=== PATIENT | male | born 1960 | race Caucasian/White ===

== ENCOUNTER 2020-12-05 17:33 | Emergency (ER) | payer OTHER ==
[~2020-12-05] VITALS: Ht 167.6 cm; Wt 85.5 kg
[2020-12-05 17:50] VITALS: BP 138/95
[2020-12-05] MEDS ORDERED: LIDOCAINE 2% 20 ML VIAL. IJ ONE (18:00)
[2020-12-05] MEDS ORDERED: BACITRACIN ZINC TOPICAL OINT PACKET. TP ONE (18:00)
[2020-12-05] MEDS ORDERED: levoFLOXacin 500 MG TABLET PO ONE (18:00)
[2020-12-05] MEDS ORDERED: TETANUS AND DIPHTHERIA TOX/PF 0.5 ML VIAL. VAX IM ONE (18:30)
--- NOTE | 2020-12-05 18:30 | RAD ---
Exam: Right foot 3 views INDICATION: Stepped on nail TECHNIQUE: Frontal, lateral oblique views of the right foot Comparisons: None FINDINGS: Bone mineralization is normal. No acute or healed fractures. Soft tissues are unremarkable. Joint spa yanci are well-maintained. IMPRESSION: No acute osseous abnormality. Electronically signed by: Dea Houser MD (12/05/2020 6:28 PM) [facility]
--- NOTE | 2020-12-06 06:51 | PHYS DOC ---
Past History Past Medical History: Other Additional Past Medical Histor: BPH Alcohol Use: Occasionally General Adult EDM: Chief Complaint: FOOT INJURY PAIN HPI: HPI: ".. I was out raking leaves..and I stepped on the that rotten two by four with those robert nails.. it went through my shoe...".." I got a hole on the bottom of my foot.." Patient is a 60 year old male who presents with hx above and complaints of puncture wound to foot. Patient was wearing tennis shoes with foam inserts. Patient does not remember his last tetanus. Patient denies any history of depression. Patient denies any travel. Patient denies any specific ill contacts. Patient normally follows with a primary care. Patient's punctuated does appear to have retained rust particles. Distal neurovascular intact. No other injury reported. No history immunosuppression. Review of Systems: Review of Systems: Constitutional: Denies fever or chills Eyes: Denies change in visual acuity HENT: Denies nasal congestion or sore throat Respiratory: Denies cough or shortness of breath Cardiovascular: Denies chest pain or edema GI: Denies abdominal pain, nausea, vomiting, bloody stools or diarrhea : Denies dysuria Musculoskeletal: Denies back pain or joint pain Integument: Complains of puncture wound on right foot Neurologic: Denies headache, focal weakness or sensory changes Endocrine: Denies polyuria or polydipsia Lymphatic: Denies swollen glands Psychiatric: Denies depression or anxiety Family History: Family History: Noncontributory to presentation Current Medications: Current Meds: Current Medications Medications (Trade) Dose Ordered Sig/[facility] Start Time Stop Time Status Last Admin Dose Admin Bacitracin (Bacitracin Topical Pkt) 1 pkt 1X ONCE 12/05/20 18:00 12/05/20 18:20 DC 12/05/20 18:38 1 PKT Levofloxacin (Levaquin) 500 mg 1X ONCE 12/05/20 18:00 12/05/20 18:20 DC 12/05/20 18:35 500 MG Lidocaine HCl 20 ml 1X ONCE 12/05/20 18:00 12/05/20 18:20 DC 12/05/20 18:10 20 ML Tetanus/ Diphtheria Toxoids Adsorbed (Tenivac Vial) 0.5 ml ONCE ONCE 12/05/20 18:30 12/05/20 18:31 DC 12/05/20 18:38 0.5 ML Allergies: Allergies: Allergies Coded Allergies Type Severity Reaction Last Updated Verified poison jemal extract Allergy Intermediate 12/05/20 Yes Physical Exam: PE: Constitutional: Moderate acute distress, non-toxic appearance. [] HENT: Normocephalic, atraumatic, bilateral external ears normal, oropharynx moist, no oral exudates, nose normal. [] Eyes: PERRLA, EOMI, conjunctiva normal, no discharge. [] Neck: Normal range of motion, no tenderness, supple, no stridor. [] Cardiovascular:Heart rate regular rhythm, no murmur [] Lungs & Thorax: Bilateral breath sounds equal at apex auscultation [] Abdomen: Bowel sounds normal, soft, no tenderness, no masses, no pulsatile masses. [] Skin: Warm, dry, no erythema, no rash. Puncture wound right foot Back: No tenderness, no CVA tenderness. [] Extremities: No tenderness, no cyanosis, no clubbing, ROM intact, no edema. [] Neurologic: Alert and oriented X 3, normal motor function, normal sensory function, no focal deficits noted. [] Psychologic: Affect normal, judgement normal, mood normal. [] Current Patient Data: Vital Signs: Vital Signs Date Time Temp Pulse Resp B/P (MAP) Pulse Ox O2 Delivery O2 Flow Rate FiO2 12/05/20 17:50 98.3 78 138/95 (109) 96 Room Air EKG: EKG: [] Radiology/Procedures: Radiology/Procedures: [][place] [address] IMAGING REPORT Signed PATIENT: ANDRES QUIGLEY OACCOUNT: [id number] : 1960 LOCATION: ER AGE: 60 SEX: M EXAM STATUS: REG ER ORD. PHYSICIAN: CLOVIS CUEVAS MD REASON: fob?, stepped on a nail PROCEDURE: FOOT RIGHT 3V Exam: Right foot 3 views INDICATION: Stepped on nail TECHNIQUE: Frontal, lateral oblique views of the right foot Comparisons: None FINDINGS: Bone mineralization is normal. No acute or healed fractures. Soft tissues are unremarkable. Joint spaces are well-maintained. IMPRESSION: No acute osseous abnormality. Electronically signed by: Dea Lopez MD (12/05/2020 6:28 PM) [facility] DICTATED AND SIGNED BY: DEA LOPEZ MD DATE: 12/05/201826 CC: CLOVIS CUEVAS MD; PCP,UNKNOWN ~MTH0 0 Heart Score: Risk Factors: Risk Factors: DM, Current or recent (<one month) smoker, HTN, HLP, family history of CAD, obesity. Risk Scores: Score 0 - 3: 2.5% MACE over next 6 weeks - Discharge Home Score 4 - 6: 20.3% MACE over next 6 weeks - Admit for Clinical Observation Score 7 - 10: 72.7% MACE over next 6 weeks - Early Invasive Strategies Course & Med Decision Making: Course & Med Decision Making Pertinent Labs and Imaging studies reviewed. (See chart for details) Procedure note; Wound Care-,,-foot cleaned with Betadine. Injected area of puncture wound with 2% lidocaine. Used a tissue biopsy punch and removed the deposits of rust that were trapped under the skin. Patient to keep area clean and dry. Antibiotic ointment 4 times a day. Take Levaquin 500 mg daily. Wear only white socks. Patient follow-up primary care. Patient return if any concerns. Patient's tetanus was updated. X-ray post procedure showed no foreign body. Recommend patient soak foot in warm Epson salt water or warm salt water 4 times a day and then apply Polysporin. Monitor closely for infection. Return if any concerns. Impression: 1. Puncture Wound Rt. Foot with foreign body [] Yared Disclaimer: Yared Disclaimer: This electronic medical record was generated, in whole or in part, using a voice recognition dictation system. Departure Departure: Impression: Primary Impression: Puncture wound Disposition: 01 DC HOME SELF CARE/HOMELESS Condition: GUARDED Patient Instructions: Puncture Wound, [id number] Additional Instructions: Keep foot clean and dry. It will bleed through current dressing. Replace the Band-Aid and Polysporin. Soak foot foot 4 times a day warm Epson salt or salt water. Take Levaquin 500 mg daily for 5 days. Follow-up primary care. Monitor closely for infection. Wear only white cotton socks until healed. Dragmac Disclaimer This chart was dictated in whole or in part using Voice Recognition software in a busy, high-work load, and often noisy Emergency Department environment. It may contain unintended and wholly unrecognized errors or omissions. CLOVIS CUEVAS MD Dec 06, 2020 06:51
== END 2020-12-05 18:47 | disposition home or self-care (01) ==
LOC: ER 17:33
DX: S91.331A Puncture wound without foreign body, right foot, initial encounter (principal); Z88.8 Allergy status to other drugs, medicaments and biological substances; W22.09XA Striking against other stationary object, initial encounter; Y93.89 Activity, other specified; Y92.89 Other specified places as the place of occurrence of the external cause; Y99.8 Other external cause status
CPT/HCPCS: 73630; 90471; 90714; 99283; J2001

== ENCOUNTER 2021-02-25 14:37 | Emergency (ER) | payer OTHER ==
[~2021-02-25] VITALS: Ht 167.6 cm; Wt 84.8 kg
[2021-02-25 14:44] VITALS: BP 161/88
[2021-02-25] MEDS ORDERED: HYDROcodone/APAP 5/325MG 1 TAB TABLET PO ONE (15:00)
[2021-02-25] MEDS ORDERED: HYDR-2155 PO (15:08)
[2021-02-25] MEDS ORDERED: ORPH-16 PO (15:08)
--- NOTE | 2021-02-25 15:08 | PHYS DOC ---
Past History Past Medical History: Other Additional Past Medical Histor: BPH Past Surgical History: No Surgical History Smoking: Non-smoker Alcohol Use: Occasionally Drug Use: None General Adult EDM: Chief Complaint: Neck Pain HPI: HPI: 60-year-old male presents with left sided neck pain and shoulder pain which started upon waking this morning. Patient denies known trauma. Denies fever or chills. Patient reports pain with turning head or movement about his shoulder. Denies numbness or tingling. Denies prior injury. Review of Systems: Review of Systems: Constitutional: Denies fever or chills Eyes: Denies redness or eye pain HENT: Denies nasal congestion or sore throat Respiratory: Denies cough or shortness of breath Cardiovascular: Denies chest pain or palpitations GI: Denies abdominal pain, nausea, or vomiting : Denies dysuria or hematuria Musculoskeletal: Reports left neck and upper shoulder pain Integument: Denies rash or skin lesions Neurologic: Denies headache, focal weakness or sensory changes Complete systems were reviewed and found to be within normal limits, except as documented in this note. Allergies: Allergies: Allergies Coded Allergies Type Severity Reaction Last Updated Verified poison jemal extract Allergy Intermediate 12/05/20 Yes Physical Exam: PE: Constitutional: Well developed, well nourished, no acute distress, non-toxic appearance HENT: Normocephalic, atraumatic Eyes: PERRL, EOMI, conjunctiva normal, no discharge Neck: Normal range of motion, no midline tenderness, left paraspinal cervical tenderness, left deltoid tenderness and tightness, supple Lungs & Thorax: No respiratory distress, equal chest rise and fall Skin: Warm, dry, no erythema, no rash Back: No midline tenderness, no CVA tenderness Extremities: No tenderness, ROM intact about left shoulder, no edema, left radial pulse +2 Neurologic: Alert and oriented X 3, normal motor function, normal sensory function, no focal deficits noted Psychologic: Affect normal, judgment normal Current Patient Data: Vital Signs: Vital Signs Date Time Temp Pulse Resp B/P (MAP) Pulse Ox O2 Delivery O2 Flow Rate FiO2 02/25/21 14:44 98.1 60 16 161/88 (112) 98 Room Air EKG: EKG: [] Radiology/Procedures: Radiology/Procedures: [] Heart Score: C/O Chest Pain: N/A Course & Med Decision Making: Course & Med Decision Making Patient presents with left neck tightness and pain with report of shoulder discomfort with any range of motion. Denies known trauma. Limb neurovascularly intact. No midline tenderness noted. HPI and physical exam more consistent with cervical muscle strain/possible pinched nerve. Patient advised may need MRI for further evaluation and diagnosis. Symptomatic treatment provided with oral [place]. Prescription given for continued [place] and Norflex. Ice pack applied. Patient stable for discharge with outpatient follow-up with PCP/pain management. Pain management referral provided. Discussed findings and plan with patient and spouse, who acknowledge understanding and agreement. Dragon Disclaimer: Dragon Disclaimer: This electronic medical record was generated, in whole or in part, using a voice recognition dictation system. Departure Departure: Impression: Primary Impression: Neck pain Disposition: HOME / SELF CARE / HOMELESS Condition: STABLE Referrals: TANYA OVALLES DO (PCP) Patient Instructions: Cervical Sprain, [id number], Muscle Strain, [id number] Additional Instructions: ICE area of discomfort 20 min on then leave off next 20 mins. Repeat several times daily for next few days. Continue for next 48-72 hours then change to heat. May use over the counter Ibuprofen in addition to prescribed medications. Call and make appointment to follow-up with Pain management or call your insurance for a referral: Dr. Seth Murguia Address: [address] [place] [address] Scripts Hydrocodone Bit/Acetaminophen (HYDROCODONE-APAP 5-325 ) 1 Each Tablet 0.5-1 TAB PO PRN Q6HRS PRN for PAIN, #10 TAB 0 Refills Prov: SALAZAR FAYE DO 02/25/21 Orphenadrine Citrate (ORPHENADRINE CITRATE) 100 Mg Tablet.er 1 TAB PO BID PRN for MUSCLE PAIN, #14 TAB 0 Refills Prov: SALAZAR FAYE DO 02/25/21 SALAZAR FAYE DO February 25, 2021 15:08
== END 2021-02-25 15:24 | disposition home or self-care (01) ==
LOC: ER 14:37
DX: M54.2 Cervicalgia (principal); M25.512 Pain in left shoulder; Z88.8 Allergy status to other drugs, medicaments and biological substances
CPT/HCPCS: 99283